=== PATIENT | female | born 1995 | race Caucasian/White ===

== ENCOUNTER 2021-02-09 07:18 | Emergency (ER) | payer MEDICAID ==
[2021-02-09] MEDS ORDERED: Ketorolac 15 MG/ML SDV IM ONE (07:55)
--- NOTE | 2021-02-09 08:11 | EDM.PDOC ---
ED HPI GENERAL MEDICAL PROBLEM - General Chief Complaint: Fever Stated Complaint: FEVER, COUGH, NO APPETITE, FATIGUE Time Seen by Provider: 02/09/21 07:42 - History of Present Illness INITIAL COMMENTS - FREE TEXT/NARRATIVE: CHIEF COMPLAINT(S): Dry cough and headache HISTORY OF PRESENT ILLNESS: This is a 25-year-old woman with a past medical history of obesity and gestational hypertension who comes to the emergency department with a chief complaint of dry cough and headache. The patient states that yesterday she started to experience a dry cough which is now wet which she describes as yellow mucus in color. She states that she has an associated headache which is bifrontal not associated with any blurry vision, loss of vision, trouble walking, speaking, swallowing. She denies any numbness, tingling, or weakness. She states that she feels profoundly fatigued. She states that yesterday at 8 PM she had a temperature of 99.2 and within minutes it was 100.7. She states that she has been taking Tylenol for the fever. She denies any lower extremity edema, recent surgery but states she did have a long train ride of approximately 30 hours from [place] but she was ambulating during that time. She states that she has not vaccinated against Covid and may have been exposed. REVIEW OF SYSTEMS: Constitutional: Positive for fever and fatigue eyes: Denies eye pain Ears, Nose, Mouth, & Throat: Denies earache Cardiovascular: Denies chest pain Respiratory: Positive for productive cough. Denies shortness of breath Gastrointestinal: Denies Nausea, vomiting, diarrhea, hematochezia. Genitourinary: Denies hematuria Skin:Denies a rash MSK: Denies joint pain Neurological: Positive for headache. Denies blurred vision, numbness, tingling, weakness Psychiatric: Denies depression PAST MEDICAL HISTORY: As per history of present illness and as reviewed below otherwise noncontributory. SURGICAL HISTORY: As per history of present illness and as reviewed below otherwise noncontributory. LMP: January 17, 2021 SOCIAL HISTORY: As per history of present illness and as reviewed below otherwise noncontributory. FAMILY HISTORY: As per history of present illness and as reviewed below otherwise noncontributory. EXAMINATION OF ORGAN SYSTEMS/BODY AREAS: Constitutional: Blood pressure was 127/74, heart rate 89, respiratory rate 20 with an oxygen saturation 97% on room air. Temperature 37.6 General: Well-appearing woman who is in no acute distress Psychiatric: Appropriate mood and affect. Eyes: No scleral icterus or conjunctival erythema ENMT: Moist mucous membranes. No pharyngeal erythema Cardiovascular: Regular, rate, and rhythm. No gallops, murmurs, or rubs. Bilateral upper extremity pulses symmetric and intact. No peripheral edema. No JVD. Respiratory: Lungs clear to auscultation bilaterally. No wheezes, rales, or rhonchi. No increased work of breathing. Gastrointestinal: Soft, non-tender, non-distended. Normoactive bowel sounds Genitourinary: No suprapubic tenderness Musculoskeletal: Normal range of motion. Skin: No lesions or abrasions. Neurological: Alert, GCS 15 strength and sensation grossly intact in upper and lower extremities bilaterally. Gait is normal MEDICAL DECISION MAKING AND COURSE IN THE ED WITH INTERPRETATION/REVIEW OF DIAGNOSTIC STUDIES: This is a 25-year-old and with a past medical history of morbid obesity and gestational hypertension who comes to the emergency department with 1 day of fever, productive cough and headache who is currently afebrile, saturating appropriately and has no abnormalities on examination. At this time we will provide the patient with Toradol for her headache and obtain a chest x-ray and a Covid swab. I do not believe any further work-up is indicated at this time. PERC Rule Age (>/=50): No (0) HR (>/=100): No (0) SaO2 on RA <95%: No (0) Unilateral Leg Swelling: No (0) Hemoptysis: No (0) Surgery/Trauma in last month requiring general anesthesia: No (0) Prior PE or DVT: : No (0) Hormone Use: No (0) PERC negative Since patient is PERC negative and pre-test probability <15%, there is no need for more intensive workup, <2% chance of PE Laboratory: Covid positive The radiological images were viewed by myself along with reading the report from the radiologist. Chest x-ray reveals no evidence of dense consolidation. After test and chest x-ray did discuss the result with the patient. I did discuss COVID-19 precautions. I discussed return precautions. She was amenable discharge and had no further questions. DISPOSITION: The patient was discharged home in stable condition. The patient will follow up with primary care physician after her quarantine CONDITION: Fair PROCEDURES: None FINAL IMPRESSION(S)/DIAGNOSES: 1. Acute COVID-19 Esteban Lacy M.D. Treatments HRIS ADMINISTRATOR: Reports: Acetaminophen "lungs" Pain Score (Numeric/FACES): 2 - Related Data Allergies Allergy/AdvReac Type Severity Reaction Status Date / Time No Known Allergies Allergy Verified 02/09/21 07:37 Home Meds: Home Meds . 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" Respiratory History: Reports: None Gastrointestinal History: Reports: None Genitourinary History: Reports: None SHROUD LINE TIER History: Reports: None Musculoskeletal History: Reports: None Neurological History: Reports: None Psychiatric History: Reports: None Endocrine/Metabolic History: Reports: None Hematologic History: Reports: None Immunologic History: Reports: None Oncologic (Cancer) History: Reports: None Dermatologic History: Reports: None - Infectious Disease History Infectious Disease History: Reports: None - Past Surgical History Head Surgeries/Procedures: Reports: None Social & Family History - Family History Family Medical History: No Pertinent Family History - Tobacco Use Tobacco Use Status *Q: Never Tobacco User Second Hand Smoke Exposure: No - Caffeine Use Caffeine Use: Reports: None - Recreational Drug Use Recreational Drug Use: No ED ROS GENERAL - Review of Systems Review Of Systems: See Below ED EXAM, GENERAL - Physical Exam Exam: See Below Course - Vital Signs Last Recorded V/S: Last Vital Signs Temp 37.2 C 02/09/21 09:56 Pulse 78 02/09/21 09:56 Resp 18 02/09/21 09:56 BP 121/73 02/09/21 09:56 Pulse Ox 97 02/09/21 09:56 - Orders/Labs/Meds Labs: Laboratory Tests 02/09/21 Range/Units 07:45 SARS-CoV-2 RNA ([place]) POSITIVE H (NEGATIVE) Meds: Medications Discontinued Medications Generic Name Dose Route Start Last Admin Trade Name Freq PRN Reason Stop Dose Admin Ketorolac Tromethamine 15 mg 02/09/21 07:55 02/09/21 08:05 Ketorolac 15 Mg/Ml Sdv IM 02/09/21 07:56 15 mg ONETIME ONE Administration Departure - Departure Time of Disposition: 09:29 Disposition: Home, Self-Care 01 Condition: Fair Clinical Impression: COVID-19 - Discharge Information *PRESCRIPTION DRUG MONITORING PROGRAM REVIEWED*: No *COPY OF PRESCRIPTION DRUG MONITORING REPORT IN PATIENT VENKAT: No Instructions: COVID-19 Frequently Asked Questions, 10 Things You Can Do to Manage Your COVID-19 Symptoms at Home - [facility] (11/26/2020), COVID-19: Keep Your Baby Healthy and Safe - [facility] (06/07/2020), COVID-19: Quarantine vs. Isolation - [facility] (04/29/2020), COVID-19: What to Do If You Are Sick- [facility] (07/28/2020) Referrals: PCP,None [Primary Care Provider] - Forms: ED Department Discharge Additional Instructions: You were evaluated today on an emergent basis. At this time you were positive for COVID-19. As discussed it is important that you treat symptomatically at home with Tylenol, Motrin and maintain hydration. We did offer you the Regeneron antibody however at this time he did not elect for this. You should take acetaminophen 500-1000 mg every 6 hours as needed for fever and muscle aches. Please drink plenty of fluids and get plenty of rest over the next several days. We would recommend that she get a pulse oximeter from the pharmacy to keep an eye on your oxygen level. If your oxygen level drops below 91%, you should return to the ED for evaluation. You should return to the ER sooner if you start having any symptoms of shortness of breath or any other new or concerning symptoms. 1. Your COVID-19 screening is positive. That means you do have the coronavirus and you are considered contagious. Your vital signs and oxygen saturation are well enough that you were able to monitor your symptoms at home. Continue to monitor for trouble breathing, new confusion or inability to arouse, bluish lips or face or any of the other symptoms we discussed -if this occurs please return to the emergency room. 2. Please self quarantine over the next 10 days. Inform any persons that you have been in contact with since you started becoming symptomatic that you have tested positive; they should be made aware and take the appropriate steps as needed. 3. May alternate Tylenol and ibuprofen as needed for pain and fever management. 4. The [facility] department will be calling you and following up with you. The [place] [facility] Hotline phone number , They are open Sunday - Sunday 7am - 7pm. Follow up with your primary care provider for re-evaluation and re-testing after the 10 day quarantine and discuss when you should be seen. [facility] - Primary Care [address] [place] [address] [facility] [address] [place] [id number] The patient is informed of any results of their evaluation and diagnostic workup and all questions are answered. They are given discharge instructions and return precautions. The patient is stable for discharge. The patient states they understand and agree with the plan and that they will return if their symptoms get worse or if they have any new concerns. The following information is given to patients seen in the emergency department who are being discharged to home. This information is to outline your options for follow-up care. We provide all patients seen in our emergency department with a follow-up referral. The need for follow-up, as well as the timing and circumstances, are variable depending upon the specifics of your emergency department visit. If you don't have a primary care physician on staff, we will provide you with a referral. We always advise you to contact your personal physician following an emergency department visit to inform them of the circumstance of the visit and for follow-up with them and/or the need for any referrals to a consulting specialist. The emergency department will also refer you to a specialist when appropriate. This referral assures that you have the opportunity for follow-up care with a specialist. All of these measure are taken in an effort to provide you with optimal care, which includes your follow-up. Under all circumstances we always encourage you to contact your private physician who remains a resource for coordinating your care. When calling for follow-up care, please make the office aware that this follow-up is from your recent emergency room visit. If for any reason you are refused follow-up, please contact the [facility] Emergency Department at and asked to speak to the emergency department charge nurse. Sepsis Event Note (ED) - Evaluation Sepsis Screening Result: No Definite Risk
--- NOTE | 2021-02-09 08:12 | CR ---
Indication: Shortness of breath and cough Comparison: None available. Technique: Single AP view chest Findings: There is no focal consolidation, effusion, or pneumothorax. The cardiomediastinal silhouette is within normal limits. The bony thorax is grossly intact. Impression: Exam is somewhat limited by patient body habitus without evidence of definite dense consolidation. Dictated by Amari Murray MD @ 02/09/2021 8:11:03 AM (Electronically Signed)
== END 2021-02-09 09:56 | disposition home or self-care (01) ==
LOC: MW.ED 07:18
DX: U07.1 COVID-19 (principal)
CPT/HCPCS: 71045; 87635; 96372; 99284; J1885; 99283; U0002

== ENCOUNTER 2021-05-15 19:59 | Emergency (ER) | payer MEDICAID ==
[2021-05-15 22:03] LABS: CORONAVIRUS COVID-19 NAA NEGATIVE (NEGATIVE); INFLUENZA A NAA POSITIVE (NEGATIVE); INFLUENZA B NAA NEGATIVE (NEGATIVE)
== END 2021-05-15 22:45 | disposition left against medical advice (07) ==
LOC: MW.ED 19:59
DX: Z53.21 Procedure and treatment not carried out due to patient leaving prior to being seen by health care provider (principal); Z20.822 Contact with and (suspected) exposure to COVID-19
CPT/HCPCS: 0240U

== ENCOUNTER 2021-05-22 12:11 | Emergency (ER) | payer MEDICAID ==
--- NOTE | 2021-05-22 12:32 | EDM.PDOC ---
ED HPI GENERAL MEDICAL PROBLEM - General Chief Complaint: Respiratory Problem Stated Complaint: COUGH,FEVER Time Seen by Provider: 05/22/21 12:21 Source of Information: Reports: Patient History Limitations: Reports: No Limitations - History of Present Illness INITIAL COMMENTS - FREE TEXT/NARRATIVE: HISTORY AND PHYSICAL: History of present illness: Patient is a 25-year-old female who presents to the emergency room with complaints of not feeling improved after having been diagnosed with influenza A. Patient was seen in the emergency room and diagnosed with influenza A on 06/2021. At that time she had cough, fever of 103 at home and generalized fatigue. She has brought her 6 month old with similar symptoms as well. Patient denies any neck stiffness, change in vision, syncope or near syncope. Denies any chest pain, back pain, shortness of breath, abdominal pain, nausea, vomiting, diarrhea, constipation or dysuria. Has not noted any blood in urine or stool. Patient has been eating and drinking appropriately. No recent travel or sick contacts. Review of systems: As per history of present illness and below otherwise all systems reviewed and negative. Past medical history: As per history of present illness and as reviewed below otherwise noncontributory. Surgical history: As per history of present illness and as reviewed below otherwise noncontributory. Social history: See social history for further information Family history: As per history of present illness and as reviewed below otherwise noncontributory. Physical exam: General: Well developed and well nourished. Alert and orientated x 3. Nontoxic in appearance and in no acute distress. Vital signs are stable and have been reviewed by me. Nursing notes were reviewed. HEENT: Atraumatic, normocephalic, pupils equal and reactive bilaterally, negative for conjunctival pallor or scleral icterus, mucous membranes moist, TMs normal bilaterally, throat clear, neck supple, nontender, trachea midline. No drooling or trismus noted. No meningeal signs. No hot potato voice noted. Lungs: Clear to auscultation bilaterally. No wheezes, rales, or rhonchi. Chest nontender. Normal work of breathing, no accessory muscles used. Heart: S1S2, regular rate and rhythm without overt murmur, gallops, or rubs. No JVD. No peripheral edema Abdomen: Soft, nondistended, nontender. Normoactive bowel sounds. Negative for masses or costovertebral tenderness. Skin: Intact, warm, dry. No lesions or rashes noted. Hematologic: No petechiae or purpra. Mucosa appropriate color and normal nail bed color and refill. Extremities: Atraumatic, moves all extremities per self without difficulty or deficits, negative for cords or calf pain. Neurovascular unremarkable. Neuro: Awake, alert, oriented. Cranial nerves II through XII unremarkable. Cerebellum unremarkable. Motor and sensory unremarkable throughout. Exam nonfocal. Psychiatric: Mood and affect are appropriate. Normal thought process. Answering questions appropriately. Please note that the patient was seen and evaluated during the 2019 SARS-CoV-2 novel coronavirus pandemic period. Community viral transmission is ongoing at time of this encounter and the emergency department is operating under pandemic response procedures. Medical Decision Making: Chest x-ray is unremarkable. COVID testing is unremarkable. We will give her some cough medication to help alleviate symptoms. I have talked with the patient about today's findings, in addition to providing specific details for plan of care. Reassessment at the time of disposition demonstrates that the patient is in no acute distress. The patient is stable for discharge, counseling was provided and we discussed in great detail signs and symptoms that would prompt them to return to the Emergency Department. Medication, follow up and supportive care measures were reviewed and discussed. Voices understanding and is agreeable to plan of care. Denies any further questions or concerns at this time. Diagnostics: COVID, chest x-ray Therapeutics: None Prescription: Cheratussin Impression: Influenza A Plan: 1. You were evaluated today on an emergent basis. Your COVID testing is negat khurram. Symptoms are related to the influenza diagnosis. Try fivj-kgo-[id number] remedies to help with symptomatic care. Your chest x-ray did not show any evidence of pneumonia or infection. 2. You can alternate Tylenol and ibuprofen as needed for pain and fever management. 3. We encourage you to follow up with your primary care provider and/or recommended specialist in the next few days for re-evaluation and further care/management. 4. If your symptoms should worsen, new symptoms develop or any of the signs and symptoms we discussed should arise please return to the emergency room or call 911 (if needed). Definitive disposition and diagnosis as appropriate pending reevaluation and review of above. general Pain Score (Numeric/FACES): 4 - Related Data Allergies Allergy/AdvReac Type Severity Reaction Status Date / Time No Known Allergies Allergy Verified 05/22/21 12:37 Home Meds: Home Meds . 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" Respiratory History: Reports: None Gastrointestinal History: Reports: None Genitourinary History: Reports: None DIRECTOR MISSION History: Reports: None Musculoskeletal History: Reports: None Neurological History: Reports: None Psychiatric History: Reports: None Endocrine/Metabolic History: Reports: None Hematologic History: Reports: None Immunologic History: Reports: None Oncologic (Cancer) History: Reports: None Dermatologic History: Reports: None - Infectious Disease History Infectious Disease History: Reports: Chicken Pox, Novel Coronavirus - Past Surgical History Head Surgeries/Procedures: Reports: None GI Surgical History: Reports: Cholecystectomy Female Surgical History: Reports: Section Social & Family History - Family History Family Medical History: No Pertinent Family History - Caffeine Use Caffeine Use: Reports: Coffee ED ROS GENERAL - Review of Systems Review Of Systems: Comprehensive ROS is negative, except as noted in HPI. ED EXAM, GENERAL - Physical Exam Exam: See Below (See dictation) Course - Vital Signs Last Recorded V/S: Last Vital Signs Temp 97.0 F 05/22/21 12:32 Pulse 73 05/22/21 12:32 Resp 18 05/22/21 12:32 BP 149/81 H 05/22/21 12:32 Pulse Ox 98 05/22/21 12:32 - Orders/Labs/Meds Labs: Laboratory Tests 05/22/21 Range/Units 12:20 SARS-CoV-2 RNA ([place]) NEGATIVE (NEGATIVE) Departure - Departure Time of Disposition: 13:22 Disposition: Home, Self-Care 01 Clinical Impression: Influenza A - Discharge Information Instructions: Influenza, Adult, [id number] Forms: ED Department Discharge Additional Instructions: The following information is given to patients seen in the emergency department who are being discharged to home. This information is to outline your options for follow-up care. We provide all patients seen in our emergency department with a follow-up referral. The need for follow-up, as well as the timing and circumstances, are variable depending upon the specifics of your emergency department visit. If you don't have a primary care physician on staff, we will provide you with a referral. We always advise you to contact your personal physician following an emergency department visit to inform them of the circumstance of the visit and for follow-up with them and/or the need for any referrals to a consulting specialist. The emergency department will also refer you to a specialist when appropriate. This referral assures that you have the opportunity for follow-up care with a specialist. All of these measure are taken in an effort to provide you with optimal care, which includes your follow-up. Under all circumstances we always encourage you to contact your private physician who remains a resource for coordinating your care. When calling for follow-up care, please make the office aware that this follow-up is from your recent emergency room visit. If for any reason you are refused follow-up, please contact the [facility] Emergency Department at and asked to speak to the emergency department charge nurse. [facility] Primary Care [address] [place] [address] [id number] [address] Thank you for choosing the [facility] emergency department in [place] for your medical needs today. It was a pleasure caring for you. Today you were seen in the emergency department for influenza and cough. 1. You were evaluated today on an emergent basis. Your COVID testing is negative. Symptoms are related to the influenza diagnosis. Try odmy-ter-inbxmrx remedies to help with symptomatic care. Your chest x-ray did not show any evidence of pneumonia or infection. 2. You can alternate Tylenol and ibuprofen as needed for pain and fever management. 3. We encourage you to follow up with your primary care provider and/or recommended specialist in the next few days for re-evaluation and further ca re/management. 4. If your symptoms should worsen, new symptoms develop or any of the signs and symptoms we discussed should arise please return to the emergency room or call 911 (if needed). Sepsis Event Note (ED) - Focused Exam Vital Signs: Vital Signs Temp Pulse Resp BP Pulse Ox 05/22/21 12:32 97.0 F 73 18 149/81 H 98
--- NOTE | 2021-05-22 12:59 | CR ---
INDICATION: Cough. TECHNIQUE: Portable AP image of the chest. COMPARISON: 02/09/2021. FINDINGS: Lungs and pleural spaces clear. Heart, mediastinum and pulmonary vessels normal. No significant osseous abnormality. IMPRESSION: Negative chest. Dictated by Rusty Marroquin MD @ 05/22/2021 12:59:22 PM (Electronically Signed)
== END 2021-05-22 13:57 | disposition home or self-care (01) ==
LOC: MW.ED 12:11
DX: J10.1 Influenza due to other identified influenza virus with other respiratory manifestations (principal); Z20.822 Contact with and (suspected) exposure to COVID-19
CPT/HCPCS: 71045; 71045-26; 99283-25; U0002

== ENCOUNTER 2021-12-27 08:55 | Emergency (ER) | payer MEDICAID ==
[2021-12-27 10:58] LABS: CARBON DIOXIDE,CO2 23.2 mmol/L (21.0-32.0); POTASSIUM,K 4.3 mmol/L (3.5-5.1)
[2021-12-27] MEDS ORDERED: Ketorolac 60 MG/2 ML SDV IM ONE (12:16)
== END 2021-12-27 12:49 | disposition home or self-care (01) ==
LOC: MW.ED 08:55
DX: M94.0 Chondrocostal junction syndrome [Tietze] (principal); Z20.822 Contact with and (suspected) exposure to COVID-19
CPT/HCPCS: 36415; 80053; 84484; 85025; 85652; 86140; 87635; 93005; 96372; 99284; J1885; 93010; 99283; U0002

== ENCOUNTER 2022-01-01 17:26 | Emergency (ER) | payer MEDICAID ==
[2022-01-01] MEDS ORDERED: Ketorolac 30 MG/ML SDV IVPUSH ONE (21:07)
[2022-01-01] MEDS ORDERED: Morphine 4 MG/ML VIAL IVPUSH ONE (21:07)
[2022-01-01] MEDS ORDERED: Lidocaine 5% 700 MG Patch TOP ONE (21:08)
[2022-01-01 22:02] LABS: CARBON DIOXIDE,CO2 23.9 mmol/L (21.0-32.0); POTASSIUM,K 3.3 mmol/L (3.5-5.1)
[2022-01-01] MEDS ORDERED: cefTRIAXone 1 GM in Sodium Chloride 0.9% 50 ML IV ONE (22:35)
[2022-01-01] MEDS ORDERED: Ondansetron 4 MG/2 ML SDV IVPUSH ONE (23:22)
== END 2022-01-02 00:52 | disposition home or self-care (01) ==
LOC: MW.ED 17:26
DX: N28.89 Other specified disorders of kidney and ureter (principal); Z20.822 Contact with and (suspected) exposure to COVID-19
CPT/HCPCS: 36415; 80053; 81001; 84703; 85025; 87635; 96374; 96375; 99283; A9270; J0696; J1885; J2270; J2405; U0002

== ENCOUNTER 2022-03-07 08:21 | Emergency (ER) | payer SELFPAY ==
[2022-03-07 09:38] LABS: CORONAVIRUS COVID-19 NAA NEGATIVE (NEGATIVE); INFLUENZA A NAA NEGATIVE (NEGATIVE); INFLUENZA B NAA NEGATIVE (NEGATIVE)
== END 2022-03-07 10:30 | disposition home or self-care (01) ==
LOC: MW.ED 08:21
DX: B34.9 Viral infection, unspecified (principal); I10 Essential (primary) hypertension; Z20.822 Contact with and (suspected) exposure to COVID-19
CPT/HCPCS: 0240U; 87651; 99283

== ENCOUNTER 2022-03-09 15:41 | Emergency (ER) | payer SELFPAY ==
[2022-03-09] MEDS ORDERED: Sodium Chloride 0.9% 2.5 ML Syringe FLUSH PRN (16:28)
[2022-03-09] MEDS ORDERED: Sodium Chloride 0.9% 10 ML Syringe FLUSH PRN (16:28)
[2022-03-09] MEDS ORDERED: Sodium Chloride 0.9% 1,000 ML IV ONE (16:30)
[2022-03-09] MEDS ORDERED: LORazepam 2 MG/ML SDV IVPUSH ONE (16:30)
[2022-03-09 18:10] LABS: BLOOD UREA NITROGEN,BUN 11 mg/dL (7.0-18.0); CARBON DIOXIDE,CO2 23.2 mmol/L (21.0-32.0); CHLORIDE,CL 106 mmol/L (98-107); GLUCOSE RANDOM 129 mg/dL (74-106); POTASSIUM,K 4.4 mmol/L (3.5-5.1); SODIUM,NA 142 mmol/L (136-145)
[2022-03-09 18:13] LABS: ESTIMATED GFR 103 mL/min (>60)
== END 2022-03-09 19:52 | disposition home or self-care (01) ==
LOC: MW.ED 15:41
DX: R07.2 Precordial pain (principal); I10 Essential (primary) hypertension; Z86.16 Personal history of COVID-19
CPT/HCPCS: 36415; 71045; 80053; 84443; 84484; 84703; 85025; 85379; 93005; 96361; 96374; 99285; J2060; J3490; J7030; 93010; 99283

== ENCOUNTER 2022-03-20 08:41 | Emergency (ER) | payer SELFPAY ==
[2022-03-20] MEDS ORDERED: Penicillin G Benzathine 1,200,000 Units/2 ML Syringe IM ONE (08:56)
== END 2022-03-20 09:15 | disposition home or self-care (01) ==
LOC: MW.ED 08:41
DX: J02.9 Acute pharyngitis, unspecified (principal); Z86.16 Personal history of COVID-19; Z90.49 Acquired absence of other specified parts of digestive tract
CPT/HCPCS: 36415; 86308; 96372; 99283; J0561

== ENCOUNTER 2022-04-08 18:08 | Emergency (ER) | payer SELFPAY ==
[2022-04-08 19:31] LABS: CORONAVIRUS COVID-19 NAA NEGATIVE (NEGATIVE); INFLUENZA A NAA NEGATIVE (NEGATIVE); INFLUENZA B NAA NEGATIVE (NEGATIVE)
[2022-04-08] MEDS ORDERED: Ondansetron 4 MG/2 ML SDV IVPUSH ONE (19:35)
[2022-04-08] MEDS ORDERED: Ketorolac 30 MG/ML SDV IVPUSH ONE (19:35)
[2022-04-08] MEDS ORDERED: Sodium Chloride 0.9% 1,000 ML IV ONE (19:35)
[2022-04-08 20:33] LABS: CARBON DIOXIDE,CO2 25.5 mmol/L (21.0-32.0); POTASSIUM,K 4.1 mmol/L (3.5-5.1)
[2022-04-08] MEDS ORDERED: Azithromycin 250 MG Tab PO STA (21:58)
== END 2022-04-08 22:11 | disposition home or self-care (01) ==
LOC: MW.ED 18:08
DX: J40 Bronchitis, not specified as acute or chronic (principal); E03.9 Hypothyroidism, unspecified; I10 Essential (primary) hypertension; Z86.16 Personal history of COVID-19; Z20.822 Contact with and (suspected) exposure to COVID-19
CPT/HCPCS: 0240U; 36415; 71045; 80053; 81003; 84439; 84443; 84481; 84484; 85025; 96361; 96374; 96375; 99284; A9270; J1885; J2405; J7030

== ENCOUNTER 2022-04-14 12:54 | Emergency (ER) | payer SELFPAY ==
[2022-04-14] MEDS ORDERED: Albuterol/Ipratropium 3.0-0.5 MG/3 ML Neb Soln NEB ONE (13:32)
== END 2022-04-14 14:44 | disposition home or self-care (01) ==
LOC: MW.ED 12:54
DX: J06.9 Acute upper respiratory infection, unspecified (principal); I10 Essential (primary) hypertension; Z86.16 Personal history of COVID-19
CPT/HCPCS: 94640; 99284; J7620-GY

== ENCOUNTER 2022-05-28 10:18 | Emergency (ER) | payer MEDICAID ==
[2022-05-28 11:32] LABS: CARBON DIOXIDE,CO2 26.1 mmol/L (21.0-32.0); POTASSIUM,K 3.9 mmol/L (3.5-5.1)
== END 2022-05-28 12:12 | disposition home or self-care (01) ==
LOC: MW.ED 10:18
DX: R60.0 Localized edema (principal); I10 Essential (primary) hypertension; Z86.16 Personal history of COVID-19; Z98.890 Other specified postprocedural states
CPT/HCPCS: 36415; 71045; 71045-26; 80053; 83880; 84439; 84443; 85025; 93005; 99284

== ENCOUNTER 2022-06-21 08:21 | Emergency (ER) | payer MEDICAID ==
[2022-06-21 09:18] LABS: CORONAVIRUS COVID-19 NAA NEGATIVE (NEGATIVE); INFLUENZA A NAA NEGATIVE (NEGATIVE); INFLUENZA B NAA NEGATIVE (NEGATIVE)
[2022-06-21 10:13] LABS: BLOOD UREA NITROGEN,BUN 16 mg/dL (7.0-18.0); CARBON DIOXIDE,CO2 23.7 mmol/L (21.0-32.0); CHLORIDE,CL 105 mmol/L (98-107); GLUCOSE RANDOM 95 mg/dL (74-106); SODIUM,NA 139 mmol/L (136-145)
[2022-06-21 10:14] LABS: ESTIMATED GFR 89 mL/min (>60)
== END 2022-06-21 13:20 | disposition home or self-care (01) ==
LOC: MW.ED 08:21
DX: R41.0 Disorientation, unspecified (principal); I10 Essential (primary) hypertension; Z86.16 Personal history of COVID-19; Z90.49 Acquired absence of other specified parts of digestive tract; Z20.822 Contact with and (suspected) exposure to COVID-19
CPT/HCPCS: 0240U; 36415; 70450; 71045; 80053; 80307; 84484; 84703; 85025; 85379; 93005; 99285; 93010; 99283

== ENCOUNTER 2022-07-06 10:37 | Emergency (ER) | payer MEDICAID ==
[2022-07-06 11:35] LABS: CORONAVIRUS COVID-19 NAA NEGATIVE (NEGATIVE); INFLUENZA A NAA NEGATIVE (NEGATIVE); INFLUENZA B NAA NEGATIVE (NEGATIVE); RESPIRATORY SYNCYTIAL VIR NAA NEGATIVE (NEGATIVE)
== END 2022-07-06 11:59 | disposition home or self-care (01) ==
LOC: MW.ED 10:37
DX: J32.9 Chronic sinusitis, unspecified (principal); Z20.822 Contact with and (suspected) exposure to COVID-19; Z86.16 Personal history of COVID-19
CPT/HCPCS: 0241U; 99283

== ENCOUNTER 2022-10-20 09:42 | Emergency (ER) | payer MEDICAID | END 2022-10-20 12:34 | disposition home or self-care (01) | LOC: MW.ED 09:42 | DX: R05.9 Cough, unspecified (principal); I10 Essential (primary) hypertension; Z86.16 Personal history of COVID-19 | CPT/HCPCS: 71046; 71046-26; 99284 ==

== ENCOUNTER 2023-08-03 01:34 | Emergency (ER) | payer MEDICAID, BC ==
[2023-08-03 02:15] LABS: BASOPHILS ABSOLUTE AUTO 0.03 K/uL (0.00-0.20); BASOPHILS PERCENT AUTO 0.4 % (0.0-1.0); EOSINOPHILS ABSOLUTE AUTO 0.21 K/uL (0.00-0.45); EOSINOPHILS PERCENT AUTO 2.7 % (0.0-6.0); HEMATOCRIT 38.7 % (37.0-47.0); IMMATURE GRAN ABSOLUTE AUTO 0.03 K/uL (0.00-0.05); IMMATURE GRAN PERCENT AUTO 0.4 % (0.0-0.4); LYMPHOCYTES ABSOLUTE AUTO 2.55 K/uL (1.00-4.80); LYMPHOCYTES PERCENT AUTO 32.9 % (24.0-44.0); MEAN CORPUSCULAR HEMOGLOBIN 30.5 pg (28.0-32.0); MEAN CORPUSCULAR HGB CONC 33.6 g/dL (32.0-36.0); MEAN CORPUSCULAR VOLUME 90.8 fL (83.0-99.0); MEAN PLATELET VOLUME 10.2 fL (9.4-12.3); MONOCYTES ABSOLUTE AUTO 0.61 K/uL (0.00-0.80); MONOCYTES PERCENT AUTO 7.9 % (0.0-8.0); NEUTROPHILS ABSOLUTE AUTO 4.33 K/uL (1.80-7.70); NEUTROPHILS PERCENT AUTO 55.7 % (41.0-71.0); PLATELET COUNT,PLT 278 K/uL (150-400); RED BLOOD CELL COUNT 4.26 M/uL (4.10-5.30); WHITE BLOOD CELL COUNT,WBC 7.76 K/uL (3.9-11.3)
[2023-08-03] MEDS: Sodium Chloride 0.9% 1,000 ML IV STA (02:23)
[2023-08-03] MEDS: Ondansetron 4 MG/2 ML SDV IVPUSH ONE (02:23)
[2023-08-03] MEDS: Ketorolac 30 MG/ML SDV IVPUSH ONE (02:23)
[2023-08-03] MEDS: Sodium Chloride 0.9% 10 ML Syringe FLUSH PRN (02:24)
[2023-08-03] MEDS: Sodium Chloride 0.9% 2.5 ML Syringe FLUSH PRN (02:24)
[2023-08-03 02:49] LABS: A/G RATIO 0.9 (0.9-1.6); ALBUMIN 3.4 g/dL (3.4-5.0); BILIRUBIN TOTAL 0.3 mg/dL (0.2-1.0); CALCIUM 9.4 mg/dL (8.5-10.1); CREATININE 0.9 mg/dL (0.6-1.0); EST CRCL DRUG DOSING (CG) 82.99 mL/min; POTASSIUM,K 4.1 mmol/L (3.5-5.1); PROTEIN TOTAL,TP 7.3 g/dL (6.4-8.2)
[2023-08-03 03:30] LABS: APPEARANCE,URINE CLEAR; BILIRUBIN,URINE NEGATIVE (NEGATIVE); COLOR,URINE YELLOW; GLUCOSE,URINE NEGATIVE (NEGATIVE); KETONES,URINE NEGATIVE (NEGATIVE); LEUKOCYTE ESTERASE,URINE NEGATIVE (NEGATIVE); NITRITE,URINE NEGATIVE (NEGATIVE); OCCULT BLOOD,URINE SMALL (NEGATIVE); PROTEIN,URINE NEGATIVE (NEGATIVE); UROBILINOGEN,URINE 0.2 EU/dL (<2.0)
[2023-08-03 03:37] LABS: BACTERIA,URINE 1+ (NEGATIVE); EPITHELIAL CELLS,URINE FEW (NONE-FEW); MUCUS,URINE MODERATE (NONE-MOD); WBC,URINE 0-2 (0-5/HPF)
== END 2023-08-03 03:52 | disposition home or self-care (01) ==
LOC: MW.ED 01:34
DX: R10.11 Right upper quadrant pain (principal); R10.13 Epigastric pain; I10 Essential (primary) hypertension
CPT/HCPCS: 36415; 76705; 80053; 81001; 81025; 83690; 85025; 96361; 96374; 96375; 99284; J1885; J2405; J3490; J7030

== ENCOUNTER 2023-09-13 08:17 | Emergency (ER) | payer BC, MEDICAID ==
[2023-09-13 08:51] LABS: BASOPHILS ABSOLUTE AUTO 0.02 K/uL (0.00-0.20); BASOPHILS PERCENT AUTO 0.3 % (0.0-1.0); EOSINOPHILS PERCENT AUTO 1.4 % (0.0-6.0); HEMOGLOBIN 12.8 g/dL (12.0-16.0); IMMATURE GRAN ABSOLUTE AUTO 0.02 K/uL (0.00-0.05); IMMATURE GRAN PERCENT AUTO 0.3 % (0.0-0.4); LYMPHOCYTES ABSOLUTE AUTO 1.53 K/uL (1.00-4.80); LYMPHOCYTES PERCENT AUTO 21.8 % (24.0-44.0); MEAN CORPUSCULAR HEMOGLOBIN 29.8 pg (28.0-32.0); MEAN CORPUSCULAR HGB CONC 32.8 g/dL (32.0-36.0); MEAN CORPUSCULAR VOLUME 90.7 fL (83.0-99.0); MEAN PLATELET VOLUME 10.2 fL (9.4-12.3); MONOCYTES ABSOLUTE AUTO 0.46 K/uL (0.00-0.80); MONOCYTES PERCENT AUTO 6.6 % (0.0-8.0); NEUTROPHILS ABSOLUTE AUTO 4.88 K/uL (1.80-7.70); NEUTROPHILS PERCENT AUTO 69.6 % (41.0-71.0); PLATELET COUNT,PLT 267 K/uL (150-400); WHITE BLOOD CELL COUNT,WBC 7.01 K/uL (3.9-11.3)
[2023-09-13] MEDS: Acetaminophen/HYDROcodone 325-5 MG Tab PO ONE (09:05)
[2023-09-13 09:10] LABS: BILIRUBIN,URINE NEGATIVE (NEGATIVE); COLOR,URINE YELLOW; GLUCOSE,URINE NEGATIVE (NEGATIVE); KETONES,URINE NEGATIVE (NEGATIVE); LEUKOCYTE ESTERASE,URINE NEGATIVE (NEGATIVE); NITRITE,URINE NEGATIVE (NEGATIVE); OCCULT BLOOD,URINE NEGATIVE (NEGATIVE); PROTEIN,URINE NEGATIVE (NEGATIVE); UROBILINOGEN,URINE 0.2 EU/dL (<2.0)
[2023-09-13 09:17] LABS: APPEARANCE,URINE HAZY
[2023-09-13 09:24] LABS: A/G RATIO 0.8 (0.9-1.6); ALBUMIN 3.3 g/dL (3.4-5.0); BILIRUBIN TOTAL 0.5 mg/dL (0.2-1.0); CALCIUM 8.8 mg/dL (8.5-10.1); CARBON DIOXIDE,CO2 24.8 mmol/L (21.0-32.0); CREATININE 0.9 mg/dL (0.6-1.0); EST CRCL DRUG DOSING (CG) 79.64 mL/min; POTASSIUM,K 4.1 mmol/L (3.5-5.1); PROTEIN TOTAL,TP 7.3 g/dL (6.4-8.2)
[2023-09-13 10:18] LABS: CANDIDA DNA PROBE NEGATIVE (NEGATIVE); GARDNERELLA DNA PROBE POSITIVE (NEGATIVE); TRICHOMONAS DNA PROBE NEGATIVE (NEGATIVE)
[2023-09-13] MEDS ORDERED: HYDROmorphone 1 MG/ML Syringe IVPUSH ONE (10:32)
[2023-09-13] MEDS ORDERED: hydrALAZINE 20 MG/ML SDV IVPUSH ONE (10:32)
[2023-09-13 10:43] LABS: C. TRACHOMATIS BY PCR DETECTED; N. GONORRHOEAE BY PCR NOT DETECTED
[2023-09-13] MEDS ORDERED: cefTRIAXone 1 GM Vial IM ONE (11:02)
[2023-09-13] MEDS ORDERED: cefTRIAXone 500 MG Vial IM ONE (11:15)
[2023-09-13] MEDS: metroNIDAZOLE 250 MG Tab PO ONE (11:25)
[2023-09-13] MEDS: cefTRIAXone 500 MG in Lidocaine 1% 1 ML IM ONE (11:26)
== END 2023-09-13 11:44 | disposition home or self-care (01) ==
LOC: MW.ED 08:17
DX: N76.0 Acute vaginitis (principal); B96.89 Other specified bacterial agents as the cause of diseases classified elsewhere; A56.09 Other chlamydial infection of lower genitourinary tract; I10 Essential (primary) hypertension; Z90.49 Acquired absence of other specified parts of digestive tract; Z79.899 Other long term (current) drug therapy; Z75.8 Other problems related to medical facilities and other health care
CPT/HCPCS: 36415; 76857; 80053; 81003; 81025; 85025; 86592; 87480; 87491; 87510; 87591; 87660; 96372; 99284; A9270; J0696; 99283; J3490